=== PATIENT | female | born 1980 | race Hispanic/Latino ===

== ENCOUNTER 2024-02-18 15:54 | Emergency (ER) | payer OTHER ==
[~2024-02-18] VITALS: Ht 157.5 cm; Wt 65.8 kg
[2024-02-18 16:16] VITALS: TEMP 98.8
[2024-02-18] MEDS: ORPHENADRINE 60MG/2ML IM ONE (16:28)
[2024-02-18] MEDS: acetaMINOPHEN 500 MG TABLET PO ONE (16:28)
[2024-02-18 17:37] VITALS: BP 138/73; PULSE 73; RESP 20; O2SAT 97
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
== END 2024-02-18 19:09 | disposition home or self-care (01) ==
LOC: EDH 15:54
DX: M54.9 Dorsalgia, unspecified (principal); G43.909 Migraine, unspecified, not intractable, without status migrainosus; V89.2XXA Person injured in unspecified motor-vehicle accident, traffic, initial encounter; Y93.89 Activity, other specified; Y92.488 Other paved roadways as the place of occurrence of the external cause; Y99.8 Other external cause status
CPT/HCPCS: 72070; 72100; 81025; 96372; 99284; J2360